=== PATIENT | male | born 1965 ===

== ENCOUNTER 2019-07-25 14:06 | Outpatient (CLI) | payer OTHER | END 2019-07-25 14:08 | disposition home or self-care (01) | LOC: RAD 14:06 | PROVIDERS: ATTEND Internal Medicine | DX: R31.21 Asymptomatic microscopic hematuria (principal); N20.0 Calculus of kidney; J44.9 Chronic obstructive pulmonary disease, unspecified ==

== ENCOUNTER → 2019-07-26 | Outpatient (CLI) | payer OTHER | END | disposition home or self-care (01) | LOC: LAB 08:14 | PROVIDERS: ATTEND Internal Medicine | DX: D50.8 Other iron deficiency anemias (principal); E11.9 Type 2 diabetes mellitus without complications; E78.2 Mixed hyperlipidemia; E03.8 Other specified hypothyroidism; E55.9 Vitamin D deficiency, unspecified; N39.0 Urinary tract infection, site not specified; N40.0 Benign prostatic hyperplasia without lower urinary tract symptoms; R31.0 Gross hematuria ==

== ENCOUNTER 2022-03-03 11:57 | Outpatient (CLI) | payer OTHER | END 2022-03-03 12:13 | disposition home or self-care (01) | LOC: RAD 11:57 | DX: M79.641 Pain in right hand (principal) ==

== ENCOUNTER 2023-09-05 11:00 | Outpatient (CLI) | payer OTHER | END 2023-09-05 11:12 | disposition home or self-care (01) | LOC: RAD 11:00 | DX: S82.899 Other fracture of unspecified lower leg (principal) ==

== ENCOUNTER 2023-10-03 11:46 | Outpatient (CLI) | payer OTHER | END 2023-10-03 12:00 | disposition home or self-care (01) | LOC: RAD 11:46 | PROVIDERS: ATTEND Orthopaedic Surgery | DX: S82.252 Displaced comminuted fracture of shaft of left tibia (principal) ==

== ENCOUNTER 2023-10-03 13:10 | Outpatient (CLI) | payer OTHER ==
[2023-10-03 13:39] LABS: HEMATOCRIT 38.8 % (39.0-48.0); HEMOGLOBIN 13.6 g/dL (13-16.00); MEAN CELL VOLUME 86.4 fL (80.0-100.00); MEAN CORPUSCULAR HEMOGLOBIN 30.4 pg (27.00-32.0); MEAN CORPUSCULAR HGB CONC 35.2 g/dl (32.0-36.0); PLATELET COUNT 366 K/uL (150-450); RED BLOOD COUNT 4.49 M/uL (4.00-6.00); RED CELL DISTRIBUTION WIDTH 15.3 % (11.5-14.5)
[2023-10-03 13:45] LABS: ERYTHROCYTE SEDIMENTATION RATE 18 mm/hr
== END 2023-10-03 13:11 | disposition home or self-care (01) ==
LOC: LAB 13:10
PROVIDERS: ATTEND Orthopaedic Surgery
DX: M06.4 Inflammatory polyarthropathy (principal)

== ENCOUNTER 2023-11-07 10:15 | Outpatient (CLI) | payer OTHER | END 2023-11-07 10:25 | disposition home or self-care (01) | LOC: RAD 10:15 | PROVIDERS: ATTEND Orthopaedic Surgery | DX: S82.252 Displaced comminuted fracture of shaft of left tibia (principal) ==

== ENCOUNTER 2023-11-07 11:41 | Outpatient (CLI) | payer OTHER ==
[2023-11-07 12:32] LABS: HEMOGLOBIN 14.7 g/dL (13-16.00); MEAN CELL VOLUME 84.7 fL (80.0-100.00); MEAN CORPUSCULAR HEMOGLOBIN 30.2 pg (27.00-32.0); MEAN CORPUSCULAR HGB CONC 35.7 g/dl (32.0-36.0); PLATELET COUNT 270 K/uL (150-450); RED BLOOD COUNT 4.85 M/uL (4.00-6.00); RED CELL DISTRIBUTION WIDTH 15.9 % (11.5-14.5)
[2023-11-07 12:39] LABS: ERYTHROCYTE SEDIMENTATION RATE 12 mm/hr
[2023-11-07 12:57] LABS: ALBUMIN 3.9 gm/dL (3.4-5.0); BILIRUBIN TOTAL 0.55 mg/dL (0.3-1.2); CALCIUM 9.5 mg/dL (8.5-10.1); CREATININE SERUM 1.27 mg/dL (0.70-1.30); GFR 58.66; GLOBULINA 3.8 G/DL (2.4-3.5); PHOSPHOROUS 4.4 mg/dL (2.5-4.9); POTASSIUM 4.12 mEq/L (3.5-5.1); TOTAL PROTEIN 7.7 gm/dL (6.4-8.2)
[2023-11-07 13:15] LABS: C-REACTIVE PROTEIN 1.54 MG/DL (0.00-0.29)
== END 2023-11-07 11:42 | disposition home or self-care (01) ==
LOC: LAB 11:41
PROVIDERS: ATTEND Orthopaedic Surgery
DX: D64.9 Anemia, unspecified (principal); M06.4 Inflammatory polyarthropathy; E55.9 Vitamin D deficiency, unspecified; M85.9 Disorder of bone density and structure, unspecified; E56.1 Deficiency of vitamin K; E21.3 Hyperparathyroidism, unspecified; E88.89 Other specified metabolic disorders; M81.8 Other osteoporosis without current pathological fracture

== ENCOUNTER → 2023-12-13 | Outpatient (CLI) | payer OTHER | END | disposition home or self-care (01) | LOC: RAD 08:58 | PROVIDERS: ATTEND Orthopaedic Surgery | DX: S82.252 Displaced comminuted fracture of shaft of left tibia (principal) ==

== ENCOUNTER 2024-01-09 11:39 | Outpatient (CLI) | payer OTHER | END 2024-01-09 13:43 | disposition home or self-care (01) | LOC: RAD 11:39 | PROVIDERS: ATTEND Orthopaedic Surgery | DX: S82.252 Displaced comminuted fracture of shaft of left tibia (principal) ==

== ENCOUNTER 2024-01-18 15:05 | Outpatient (CLI) | payer OTHER | END 2024-01-18 15:14 | disposition home or self-care (01) | LOC: TOM 15:05 | PROVIDERS: ATTEND Orthopaedic Surgery | DX: S82.252 Displaced comminuted fracture of shaft of left tibia (principal) ==

== ENCOUNTER → 2024-02-10 08:08 | Outpatient (CLI) | payer OTHER ==
[2024-02-10 08:55] LABS: HEMATOCRIT 41.8 % (39.0-48.0); HEMOGLOBIN 14.8 g/dL (13-16.00); MEAN CELL VOLUME 89.8 fL (80.0-100.00); MEAN CORPUSCULAR HEMOGLOBIN 31.9 pg (27.00-32.0); MEAN CORPUSCULAR HGB CONC 35.5 g/dl (32.0-36.0); PLATELET COUNT 233 K/uL (150-450); RED BLOOD COUNT 4.66 M/uL (4.00-6.00); RED CELL DISTRIBUTION WIDTH 13.5 % (11.5-14.5)
[2024-02-10 09:06] LABS: ERYTHROCYTE SEDIMENTATION RATE 8 mm/hr
== END | disposition home or self-care (01) ==
LOC: LAB 08:08
DX: L08.9 Local infection of the skin and subcutaneous tissue, unspecified (principal)

== ENCOUNTER 2024-02-10 09:23 | Outpatient (CLI) | payer OTHER | END 2024-02-10 09:29 | disposition home or self-care (01) | LOC: RAD 09:23 | DX: S82.302D Unspecified fracture of lower end of left tibia, subsequent encounter for closed fracture with routine healing (principal) ==

== ENCOUNTER 2024-05-28 10:25 | Outpatient (CLI) | payer OTHER | END 2024-05-28 10:37 | disposition home or self-care (01) | LOC: RAD 10:25 | DX: S82.252M Displaced comminuted fracture of shaft of left tibia, subsequent encounter for open fracture type I or II with nonunion (principal) ==

== ENCOUNTER 2024-07-04 11:53 | Outpatient (CLI) | payer OTHER | END 2024-07-04 11:59 | disposition home or self-care (01) | LOC: RAD 11:53 | DX: S82.252D Displaced comminuted fracture of shaft of left tibia, subsequent encounter for closed fracture with routine healing (principal); X58.XXXD Exposure to other specified factors, subsequent encounter ==

== ENCOUNTER 2024-08-14 09:29 | Outpatient (CLI) | payer OTHER | END 2024-08-14 09:36 | disposition home or self-care (01) | LOC: RAD 09:29 | DX: S82.302A Unspecified fracture of lower end of left tibia, initial encounter for closed fracture (principal) ==

== ENCOUNTER 2024-12-14 10:51 | Outpatient (CLI) | payer OTHER | END 2024-12-14 11:00 | disposition home or self-care (01) | LOC: SONOGRAMA 10:51 | DX: R31.29 Other microscopic hematuria (principal); N20.0 Calculus of kidney ==